=== PATIENT | female | born 1985 | race Caucasian/White ===

== ENCOUNTER 2023-01-14 11:50 | Inpatient (IN) | payer OTHER ==
[2023-01-14] MEDS ORDERED: ELECTROLYTE-148 SOLN 500 ML IV ONE ×2 (13:00→13:30)
[2023-01-14] MEDS ORDERED: CITRIC ACID/SODIUM CITRATE 30 ML UNIT-DOSE CUP PO ONE (13:00)
[2023-01-14] MEDS ORDERED: ACETAMINOPHEN 325 MG TABLET (FP) PO PRN ×2 (13:20→14:39)
[2023-01-14] MEDS ORDERED: ONDANSETRON 4 MG/2 ML VIAL IVPUSH PRN (13:20)
[2023-01-14] MEDS ORDERED: IBUPROFEN 600 MG TABLET (FP) PO PRN (13:20)
[2023-01-14] MEDS ORDERED: morphine SULFATE/PF 1 MG/2 ML (2cc Syringe - QUVA) EP ONE (13:20)
[2023-01-14 13:21] LABS: BASO % 0.4 % (0-2.0); EOS % 0.2 % (0-4.5); HEMATOCRIT 28.8 % (32.4-45.2); HEMOGLOBIN 10.2 GM/dL (10.7-15.3); LYMPH % 14.2 % (8-40); MCH 31.9 pg (25.7-33.7); MCHC 35.5 g/dl (32.0-36.0); MEAN PLT VOLUME 10.8 fl (7.5-11.1); MONO % 6.3 % (3.8-10.2); NEUT % 78.9 % (42.8-82.8); PLATELET COUNT 192 10^3/uL (134-434); RDW 16.3 % (11.6-15.6); WHITE BLOOD COUNT 12.2 K/mm3 (4.0-10.0)
[2023-01-14] MEDS ORDERED: ceFAZolin SODIUM 1 GM VIAL ONE (13:26)
[2023-01-14] MEDS ORDERED: SODIUM CHLORIDE 0.9% P/F 10 ML VIAL IJ ONE (13:26)
[2023-01-14 13:27] LABS: INR 0.97 (0.83-1.09); PROTHROMBIN TIME (PATIENT) 11.3 SEC (9.7-13.0)
[2023-01-14 13:30] LABS: ACTIVATED PTT 25.8 SECONDS (25.2-36.5)
[2023-01-14] MEDS ORDERED: PHENYLEPHRINE HCL 10 MG/1 ML SINGLE DOSE VIAL ONE (13:49)
[2023-01-14] MEDS ORDERED: OXYTOCIN 10 UNITS/ML VIAL ONE ×4 (13:52→14:22)
[2023-01-14 13:56] LABS: POTASSIUM 4.2 mmol/L (3.5-5.1)
[2023-01-14] MEDS ORDERED: MIDAZOLAM HCL 2 MG/2 ML SINGLE DOSE VIAL ONE (13:56)
[2023-01-14 13:58] LABS: CALCIUM 8.3 mg/dL (8.5-10.1)
[2023-01-14 14:01] LABS: CREATININE 0.5 mg/dL (0.55-1.3)
[2023-01-14] MEDS ORDERED: METHYLERGONOVINE MALEATE 0.2 MG/1 ML AMP IM PRN (14:39)
[2023-01-14] MEDS ORDERED: SENNOSIDES/DOCUSATE COMBO (SENNA PLUS) TABLET (UD) PO PRN (14:39)
[2023-01-14] MEDS: OXYTOCIN 20 UNITS in 0.9% NS 20 UNIT/1,000 ML INFUS.BAG IV SCH (15:15)
[2023-01-14] MEDS ORDERED: OXYTOCIN 20 UNITS in 0.9% NS 20 UNIT/1,000 ML INFUS.BAG IV ONE (15:17)
[2023-01-14 15:46] VITALS: BMI 33.6
[2023-01-14] MEDS: IBUPROFEN 800 MG/8 ML IJ IVPB PRN (21:03)
[2023-01-14] MEDS: SIMETHICONE 80 MG TAB.CHEW (FP) PO PRN (21:04)
[2023-01-14] MEDS: FERROUS SO4 325 MG TABLET (FP) PO SCH (22:01)
[2023-01-15] MEDS: OXYTOCIN 20 UNITS in 0.9% NS 20 UNIT/1,000 ML INFUS.BAG IV SCH ×2 (00:59→20:44)
[2023-01-15] MEDS ORDERED: oxyCODONE HCL 5 MG TABLET PO PRN ×2 (02:39)
[2023-01-15] MEDS: SIMETHICONE 80 MG TAB.CHEW (FP) PO PRN ×4 (06:00→20:59)
[2023-01-15] MEDS: IBUPROFEN 800 MG/8 ML IJ IVPB PRN (06:02)
[2023-01-15 07:10] LABS: BASO % 0.3 % (0-2.0); EOS % 0.1 % (0-4.5); HEMATOCRIT 32.4 % (32.4-45.2); HEMOGLOBIN 11.7 GM/dL (10.7-15.3); LYMPH % 10.4 % (8-40); MCH 32.3 pg (25.7-33.7); MCHC 36.1 g/dl (32.0-36.0); MEAN CELL VOLUME 89.6 fl (80-96); MEAN PLT VOLUME 10.5 fl (7.5-11.1); MONO % 4.7 % (3.8-10.2); NEUT % 84.5 % (42.8-82.8); PLATELET COUNT 164 10^3/uL (134-434); RBC 3.61 M/mm3 (3.60-5.2); RDW 15.5 % (11.6-15.6); WHITE BLOOD COUNT 13.5 K/mm3 (4.0-10.0)
[2023-01-15] MEDS: FERROUS SO4 325 MG TABLET (FP) PO SCH ×2 (09:36→22:14)
[2023-01-15] MEDS: PRENATAL VITAMINS W/ FOLIC ACID TABLET (FP) PO SCH (09:36)
[2023-01-15] MEDS: IBUPROFEN 600 MG TABLET (FP) PO PRN ×3 (12:46→20:59)
[2023-01-15] MEDS ORDERED: BISACODYL 10 MG SUPP.RECT RC PRN (14:39)
[2023-01-16] MEDS: IBUPROFEN 600 MG TABLET (FP) PO PRN ×2 (03:36→09:05)
[2023-01-16] MEDS: SIMETHICONE 80 MG TAB.CHEW (FP) PO PRN ×2 (03:36→09:05)
[2023-01-16] MEDS: FERROUS SO4 325 MG TABLET (FP) PO SCH (09:05)
[2023-01-16] MEDS: PRENATAL VITAMINS W/ FOLIC ACID TABLET (FP) PO SCH (09:05)
[2023-01-16 09:57] VITALS: BP 107/76; PULSE 76; RESP 18; TEMP 98.3
== END 2023-01-16 11:30 | disposition home or self-care (01) | DRG 788 ==
LOC: JLDR 11:50 → J3W 16:40
PROVIDERS: ADMIT Obstetrics & Gynecology; ATTEND Obstetrics & Gynecology
PROC: 10D00Z1 Extraction of Products of Conception, Low, Open Approach (ICD-10-PCS; principal; 2023-01-14)
PROC: 30233N1 Transfusion of Nonautologous Red Blood Cells into Peripheral Vein, Percutaneous Approach (ICD-10-PCS; 2023-01-14)
DX: O45.93 Premature separation of placenta, unspecified, third trimester (principal); O36.8330 Maternal care for abnormalities of the fetal heart rate or rhythm, third trimester, not applicable or unspecified; Z3A.38 38 weeks gestation of pregnancy; O99.02 Anemia complicating childbirth; Z37.0 Single live birth
CPT/HCPCS: 36415; 36430; 80048; 85025; 85610; 85730; 86780; 86850; 86900; 86901; 86922; 88307-TC; C9803-CS; P9038; P9058; U0003; U0005